=== PATIENT | male | born 1935 | race Caucasian/White ===

== ENCOUNTER → 2017-11-28 | Day surgery (SDC) | payer OTHER ==
[~2017-11-28] VITALS: Ht 172.7 cm; Wt 90.9 kg
[~2017-11-28] MED LIST: AMLO10TA3 PO; ATROPINE SULFATE 0.1 MG/ML 5ML SYR IV PRN; DEXAMETHASONE SOD INJ 4 MG/ML VIAL ONE; FENTANYL CITRATE INJ 50 MCG/1 ML 2 ML VIAL IV PRN; FENTANYL CITRATE INJ 50 MCG/1 ML 2 ML VIAL ONE; GLYCOPYRROLATE INJ 0.2 MG/ML VIAL ONE; INDOMETHACIN 50 MG SUPP ONE; INDOMETHACIN 50 MG SUPP PR ONE; LACTATED RINGER'S 1000ML 1,000 ML IV SCH; LIDOCAINE HCL 2% 2 ML VIAL (20MG/ML) ONE; LOSA1TAB38 PO; NEOSTIGMINE METHYLSULFATE 5 MG/5 ML SYR ONE; ONDANSETRON INJ 2 MG/ML 2 ML VIAL IV PRN; ONDANSETRON INJ 2 MG/ML 2 ML VIAL ONE; POLYSOL4 OP; PRLSR20 PO; PROPOFOL IV EMULSION 10 MG/ML 20 ML VIAL ONE; ROCURONIUM BROMIDE 10 MG/ML 5 ML VIAL ONE; TERA1CAP63 PO; TRAM-10 PO; TRAV0.00 OP
[2017-11-28 08:37] VITALS: BP 160/68; PULSE 76; TEMP 36.7; O2SAT 98; Ht 172.7 cm; Wt 90.9 kg
--- NOTE | 2017-11-28 10:42 | Endo History and Physical ---
History & Physical Date of Service: Nov 28, 2017. Chief Complaint: Abdominal pain Referring Physician: Dr. Rick History of Present Illness The patient presents for evaluation of abdominal pain after cholecystectomy. He underwent a cholecystectomy about 1 week ago and was found to have positive intraoperative cholangiogram. The patient was referred for ERCP for further evaluation. The patient is not jaundiced and his liver enzymes seem to be somewhat improved. Past Surgical History Hx Cardiac Surgery: No Hx Abdominal Surgery: No Hx Post-Op Nausea and Vomiting: No Hx Cancer Surgery: Yes (PROSTATE SEEDING PLACED,MOLE REMOVAL SHOULDER) Hx Thoracic Surgery: No Hx Orthopedic: Yes (ORIF R HAND) Hx Urinary Tract Surgery: No Social History Smoking Status: Never Smoker Hx Substance Use: No Hx Alcohol Use: Yes (RARELY) Allergies Coded Allergies: Doxycycline (Verified Allergy, Unknown, RASH HIVES, 11/28/17) Penicillins (Verified Allergy, Unknown, RASH HIVES, 11/28/17) Current Medications Reported Home Medications Medications Dose Route/Sig Max Daily Dose Days Date Category Travatan Z (Travoprost) 0.004 % Nicholas 1 Drops OP HS 11/27/17 Reported Systane (Polyethylene Glycol-Propylene) 1 Elizabeth Elizabeth 1 Drops OP PRN 11/27/17 Reported Ultram (Tramadol HCl) 50 Mg Tab 50 Mg PO Q8H PRN 11/27/17 Reported Prilosec (Omeprazole) 20 Mg Capcr 20 Mg PO PRN 11/27/17 Reported Hytrin (Terazosin HCl) 10 Mg Cap 10 Mg PO HS 11/27/17 Reported Norvasc (Amlodipine Besylate) 10 Mg Tab 10 Mg PO QAM 11/27/17 Reported Cozaar (Losartan Potassium) 100 Mg Tab 100 Mg PO QAM 11/27/17 Reported Vital Signs Weight (Kilograms): 90.91 Height (Feet): 5 Height (Inches): 8 Date Time Temp Pulse Resp B/P (MAP) Pulse Ox O2 Delivery O2 Flow Rate FiO2 11/28/17 08:37 36.7 76 18 160/68 (98) 98 Room Air Physical Exam General Appearance: no apparent distress Respiratory/Chest: Auscultation: breath sounds normal Cardiovascular: Heart Auscultation: II/ WES Abdomen: Inspection & Palpation: RUQ tenderness Assessment and Plan Patient presents for valuation of a suspected positive intraoperative cholangiogram. Has been over a week since the IOC was done and his labs are somewhat improved we will plan to do endoscopic ultrasound as the first part of the evaluation. If the EUS does show a gallstone we will then proceed with ERCP. I discussed the risks of the procedures to include bleeding, infection, perforation, aspiration, failed biliary cannulation, and pancreatitis.
--- NOTE | 2017-11-28 11:23 | GI REPORT ---
Patient Name: Stephon Roche Procedure Date: 11/28/2017 11:15 AM Date of : 1935 Admit Type: Outpatient Age: 81 Gender: Male Attending MD: Eric Austin DO Procedure: Upper GI endoscopy Providers: Eric Austin DO Referring MD: David Freeman Md Indications: Epigastric abdominal pain Medicines: General Anesthesia Complications: No immediate complications. Estimated blood loss: Minimal. Estimated Blood Loss: Estimated blood loss was minimal. Procedure: Pre-Anesthesia Assessment: - Prior to the procedure, a History and Physical was performed, and patient medications, allergies and sensitivities were reviewed. The patient's tolerance of previous anesthesia was reviewed. - The risks and benefits of the procedure and the sedation options and risks were discussed with the patient. All questions were answered and informed consent was obtained. - Patient identification and proposed procedure were verified prior to the procedure by the physician, the nurse and the forest technician. The procedure was verified in the procedure room. - Pre-procedure physical examination revealed no contraindications to sedation. - ASA Grade Assessment: III - A patient with severe systemic disease. - After reviewing the risks and benefits, the patient was deemed in satisfactory condition to undergo the procedure. - The anesthesia plan was to use general anesthesia. - Immediately prior to administration of medications, the patient was re-assessed for adequacy to receive sedatives. - The heart rate, respiratory rate, oxygen saturations, blood pressure, adequacy of pulmonary ventilation, and response to care were monitored throughout the procedure. - The physical status of the patient was re-assessed after the procedure. After obtaining informed consent, the endoscope was passed under direct vision. Throughout the procedure, the patient's blood pressure, pulse, and oxygen saturations were monitored continuously. The scope was introduced through the mouth, and advanced to the third part of duodenum. The upper GI endoscopy was accomplished without difficulty. The patient tolerated the procedure well. Findings: The examined esophagus was normal. The Z-line was regular and was found 39 cm from the incisors. Diffuse mild inflammation characterized by erythema and granularity was found in the entire examined stomach. Biopsies were taken with a cold forceps for histology. Estimated blood loss was minimal. Multiple 4 to 10 mm semi-sessile polyps with no bleeding and no stigmata of recent bleeding were found in the gastric fundus and in the gastric body. Biopsies were taken with a cold forceps for histology. Estimated blood loss was minimal. The examined duodenum was normal. Impression: - Normal esophagus. - Z-line regular, 39 cm from the incisors. - Gastritis. Biopsied. - Multiple gastric polyps. Biopsied. - Normal examined duodenum. Recommendation: - Perform an upper endoscopic ultrasound (UEUS) today. - Await pathology results. - Repeat the upper endoscopy for surveillance based on pathology results. Eric Austin D.O. Eric Austin, 11/28/2017 11:23:20 AM This report has been signed electronically. Note Initiated On: 11/28/2017 11:15 AM Number of Addenda: 0 I attest to the content of the Intraoperative Record and orders documented therein, exceptions below {[id number]}
--- NOTE | 2017-11-28 11:34 | GI REPORT ---
Patient Name: Stephon Roche Procedure Date: 11/28/2017 11:23 AM Date of : 1935 Admit Type: Outpatient Age: 81 Gender: Male Attending MD: Eric Austin DO Procedure: Upper EUS Providers: Eric Austin DO Referring MD: David Freeman Md Indications: Abnormal lab work, Suspected choledocholithiasis Medicines: General Anesthesia Complications: No immediate complications. Estimated blood loss: Minimal. Estimated Blood Loss: Estimated blood loss was minimal. Procedure: Pre-Anesthesia Assessment: - Prior to the procedure, a History and Physical was performed, and patient medications, allergies and sensitivities were reviewed. The patient's tolerance of previous anesthesia was reviewed. - The risks and benefits of the procedure and the sedation options and risks were discussed with the patient. All questions were answered and informed consent was obtained. - Patient identification and proposed procedure were verified prior to the procedure by the physician, the nurse and the tour escort. The procedure was verified in the procedure room. - Pre-procedure physical examination revealed no contraindications to sedation. - ASA Grade Assessment: III - A patient with severe systemic disease. - After reviewing the risks and benefits, the patient was deemed in satisfactory condition to undergo the procedure. - The anesthesia plan was to use general anesthesia. - Immediately prior to administration of medications, the patient was re-assessed for adequacy to receive sedatives. - The heart rate, respiratory rate, oxygen saturations, blood pressure, adequacy of pulmonary ventilation, and response to care were monitored throughout the procedure. - The physical status of the patient was re-assessed after the procedure. After obtaining informed consent, the endoscope was passed under direct vision. Throughout the procedure, the patient's blood pressure, pulse, and oxygen saturations were monitored continuously. The Endosonoscope was introduced through the mouth, and advanced to the second part of duodenum. The upper EUS was accomplished without difficulty. The patient tolerated the procedure well. Findings: Endosonographic Finding : There was no sign of significant endosonographic abnormality in the ampulla. No masses were identified. Evidence of a previous cholecystectomy was identified endosonographically. There was dilation in the common bile duct which measured up to 7 mm. One stone was visualized endosonographically in the common bile duct. It was hyperechoic and characterized by shadowing. There was abnormal echogenicity in the left lobe of the liver. This area was hyperechoic. There was no sign of significant endosonographic abnormality in the entire pancreas. The pancreas was well visualized, no masses, no cysts, the pancreatic duct was thin in caliber. No lymph nodes were seen during endosonographic examination in the perigastric region, in the peripancreatic region and in the sabrina hepatis region. Impression: - There was no sign of significant pathology in the ampulla. - Evidence of a cholecystectomy. - There was dilation in the common bile duct which measured up to 7 mm. - One stone was visualized endosonographically in the common bile duct. - There was abnormal echogenicity in the left lobe of the liver. This was hyperechoic. Tissue has not been obtained. However, the endosonographic appearance is suggestive of fatty infiltration. - There was no sign of significant pathology in the entire pancreas. - No specimens collected. Recommendation: - Perform an ERCP today. Eric Austin D.O. Eric Austin, 11/28/2017 11:34:16 AM This report has been signed electronically. Note Initiated On: 11/28/2017 11:23 AM Number of Addenda: 0 I attest to the content of the Intraoperative Record and orders documented therein, exceptions below {[id number]}
--- NOTE | 2017-11-28 12:02 | [facility] Post Operative Brief Note ---
Immediate Operative Summary Operative Date Nov 28, 2017. Pre-Operative Diagnosis Suspected positive intraoperative cholangiogram; Epigastric abdominal pain Post-Operative Diagnosis Choledocholithiasis Mild gastritis Gastric polyps Procedure(s) Performed Endoscopic Retrograde Cholangiopancreatogram; Upper Endoscopic Ultrasonography, Upper endoscopy Surgeon Dr. Nikolas Austin Hop Separator Surgeon(s) none Estimated Blood Loss 0 ml Findings Consistent with Post-Op Diagnosis Specimens 1) gastric biopsies 2) Gastric polyp biopsies Drains None Anesthesia Type General Complication(s) none Disposition Accompanied Pt To Recover: no Disposition: Recovery Room / PACU
--- NOTE | 2017-11-28 12:08 | GI REPORT ---
Patient Name: Stephon Roche Procedure Date: 11/28/2017 11:34 AM Date of : 1935 Admit Type: Outpatient Age: 81 Gender: Male Attending MD: Eric Austin DO Procedure: ERCP Providers: Eric Austin DO Referring MD: David Freeman Md Indications: Abdominal pain of suspected biliary origin, Filling defect on intraoperative cholangiogram, Abnormal endoscopic ultrasound of the biliary system Medicines: General Anesthesia, Indocin 100 mg FL Complications: No immediate complications. Estimated blood loss: Minimal. Estimated Blood Loss: Estimated blood loss was minimal. Procedure: Pre-Anesthesia Assessment: - Prior to the procedure, a History and Physical was performed, and patient medications, allergies and sensitivities were reviewed. The patient's tolerance of previous anesthesia was reviewed. - The risks and benefits of the procedure and the sedation options and risks were discussed with the patient. All questions were answered and informed consent was obtained. - Patient identification and proposed procedure were verified prior to the procedure by the physician, the nurse and the clinical asst. The procedure was verified in the procedure room. - Pre-procedure physical examination revealed no contraindications to sedation. - ASA Grade Assessment: III - A patient with severe systemic disease. - After reviewing the risks and benefits, the patient was deemed in satisfactory condition to undergo the procedure. - The anesthesia plan was to use general anesthesia. - Immediately prior to administration of medications, the patient was re-assessed for adequacy to receive sedatives. - The heart rate, respiratory rate, oxygen saturations, blood pressure, adequacy of pulmonary ventilation, and response to care were monitored throughout the procedure. - The physical status of the patient was re-assessed after the procedure. After obtaining informed consent, the scope was passed under direct vision. Throughout the procedure, the patient's blood pressure, pulse, and oxygen saturations were monitored continuously. The Scope was introduced through the mouth, and advanced to the duodenum and used to inject contrast into the bile duct and ventral pancreatic duct. The ERCP was accomplished without difficulty. The patient tolerated the procedure well. Findings: A vehicle glass technician film of the abdomen was obtained. Surgical clips, consistent with previous cholecystectomy, were seen in the area of the right upper quadrant of the abdomen. Surgical clips, consistent with previous cholecystectomy, were seen in the area of the right upper quadrant of the abdomen. The esophagus was successfully intubated under direct vision without detailed examination of the pharynx, larynx, and associated structures, and upper GI tract. The upper GI tract was grossly normal. 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 The major papilla was congested. The ventral pancreatic duct was inadvertently cannulated with the short-nosed traction sphincterotome and 0.035 in MET2 guidewire without any complications. This was left in place to aid in biliary cannulation with a double wire technique. The bile duct was deeply cannulated with the short-nosed traction sphincterotome and 0.035 in Acrobat 2 guidewire. Contrast was injected. I personally interpreted the bile duct images. Contrast extended to the entire biliary tree. A cholecystectomy had been performed. The main bile duct was moderately dilated, with a stone causing an obstruction. In additioin, there appeared be papillary stenosis. The largest diameter was 7 mm. Biliary sphincterotomy was made with a monofilament short-tip traction sphincterotome using ERBE electrocautery. The sphincterotomy oozed blood (stopped prior to the end of the procedure). To discover objects, the biliary tree was swept with an 8.5 to 15 mm balloon starting at the bifurcation several times. One pale stone and a small amount of sludge was removed. No stones remained on occlusion cholangiogram (inject below balloon). One 5 Fr by 7 cm pancreatic stent with a full external pigtail and no internal flaps was placed 7 cm into the ventral pancreatic duct. Clear fluid flowed through the stent(s). The stent was in good position. The endoscope was withdrawn from the patient. Impression: - Choledocholithiasis was found. Complete removal was accomplished by biliary sphincterotomy and balloon extraction. 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 - One prophylactic pancreatic stent was placed into the ventral pancreatic duct. Recommendation: - Discharge patient to home (ambulatory). - Clear liquid diet today. - Perform a flat plate abdominal x-ray in 4 weeks to ensure passage of the pancreatic stent.. - Observe patient's clinical course following today's ERCP with therapeutic intervention. - Check liver enzymes (AST, ALT, alkaline phosphatase, bilirubin) in 1 week. Eric Austin D.O. Eric Austin DO 11/28/2017 12:08:25 PM This report has been signed electronically. Note Initiated On: 11/28/2017 11:34 AM Number of Addenda: 0 I attest to the content of the Intraoperative Record and orders documented therein, exceptions below {[id number]}
--- NOTE | 2017-11-28 12:26 | Discharge Instructions ---
Endoscopy Patient Instructions Date / Procedure(s) Performed Nov 28, 2017. ERCP, EGD, Other (Endoscopic Ultrasound) Allergy Information Coded Allergies: Doxycycline (Verified Allergy, Unknown, RASH HIVES, 11/28/17) Penicillins (Verified Allergy, Unknown, RASH HIVES, 11/28/17) Discharge Date / Findings Nov 28, 2017. Mild dilation of the common bile duct Papillary stenosis One stone and some sludge in the common bile duct Mild gastritis Several gastric polyps Medication Instructions Reported Home Medications Medications Dose Route/Sig Max Daily Dose Days Date Category Travatan Z (Travoprost) 0.004 % Nicholas 1 Drops OP HS 11/27/17 Reported Systane (Polyethylene Glycol-Propylene) 1 Elizabeth Elizabeth 1 Drops OP PRN 11/27/17 Reported Ultram (Tramadol HCl) 50 Mg Tab 50 Mg PO Q8H PRN 11/27/17 Reported Prilosec (Omeprazole) 20 Mg Capcr 20 Mg PO PRN 11/27/17 Reported Hytrin (Terazosin HCl) 10 Mg Cap 10 Mg PO HS 11/27/17 Reported Norvasc (Amlodipine Besylate) 10 Mg Tab 10 Mg PO QAM 11/27/17 Reported Cozaar (Losartan Potassium) 100 Mg Tab 100 Mg PO QAM 11/27/17 Reported Provider Instructions Activity Restrictions - No exercising or heavy lifting for 24 hours. - Do not drink alcohol the day of the procedure. - Do not drive a car or operate machinery until the day after the procedure. - Do not make any important decisions or sign important papers in 24 hours after the procedure. Following Day: - Return to full activity which may include returning to work/school. Diet Clear liquid diet today Regular diet on 11/29/17 Treatment For Common After Affects For mild abdominal pain, bloating, or excessive gas: - Rest - Eat lightly - Lie on right side Follow-Up Information Normal x-ray in 1 month to ensure passage of the pancreatic stent Liver enzyme panel in 1 week Use of aspirin, Motrin and ibuprofen (NSAIDS) for 1 week Liquid diet today Follow-up with Dr. Austin if the symptoms return or persist. Anesthesia Information What You Should Know You have had a procedure that required some medicine to reduce anxiety and discomfort. This treatment is called moderate sedation. After receiving the treatment, you may be sleepy, but you will be able to breathe on your own. The effects of the treatment may last for several hours. Follow these instructions along with Activity/Diet recommendations noted above: * Do NOT do anything where dizziness or clumsiness would be dangerous. * Rest quietly at home today, then you can be up and about tomorrow. * Have a responsible person stay with you the rest of today. * You may have had an I.V. today. If so, you may take the dressing off later today. Recommendations Call your doctor if: * Trouble breathing * Continuous vomiting for more than 24 hours * Temperature above 101 degrees * Severe abdominal pain or bloating * Pain not relieved by pain medicine ordered * There is increased drainage or redness from any incision * A large amount of rectal bleeding greater than 2-3 tablespoons. (If you had a polyp/s removed or have hemorrhoids, a small amount of blood - from the rectum is to be expected.) * You have any unanswered questions or concerns. IN THE EVENT OF A SERIOUS EMERGENCY, GO TO THE NEAREST EMERGENCY ROOM Your discharge instructions were prepared by provider Eric Austin. Patient Instructions Signature Page Stephon Roche Patient (or Guardian) Signature/Date: I have read and understand the instructions given to me by my caregivers. Caregiver/RN/Doctor Signature/Date: The above-named patient and/or guardian has received patient instructions on this date. + Original Patient Signature Page (only) stays with chart. Please make copy for patient.
--- NOTE | 2017-11-28 12:28 | DIAGNOSTIC IMAGING REPORT ---
ERCP BILIARY DUCTAL CLINICAL HISTORY: ERCP IN OR 11/28/17 COMPARISON STUDY: None. FLUOROSCOPY TIME: 38 seconds. FINDINGS: 9 fluoroscopic images from ERCP were submitted for interpretation. These images demonstrate cannulation of the common bile duct with apparent balloon sweep through the common bile duct. Contrast is noted within the duodenum. No biliary ductal dilatation is identified. Intrahepatic bile ducts are partially opacified. IMPRESSION: Fluoroscopic images obtained during ERCP. Electronically signed by: Vel De La Rosa M.D. 11/28/2017 12:27 PM Dictated Date/Time: 11/28/2017 12:26 PM
--- NOTE | 2017-11-28 12:36 | Anesthesiology Progress Note ---
Anesthesia Post Op Note Date & Time Nov 28, 2017 at 12:35 Vital Signs Pain Intensity: 0 Vital Signs Past 12 Hours Date Time Temp Pulse Resp B/P (MAP) Pulse Ox O2 Delivery O2 Flow Rate FiO2 11/28/17 12:25 57 13 152/73 98 Room Air 11/28/17 12:15 56 16 160/66 96 Oxymask 10 11/28/17 12:06 36.0 54 22 134/66 99 Oxymask 10 11/28/17 08:37 36.7 76 18 160/68 (98) 98 Room Air Notes Mental Status: alert / awake / arousable, participated in evaluation Pt Amnestic to Procedure: Yes Nausea / Vomiting: adequately controlled Pain: adequately controlled Airway Patency, RR, SpO2: stable & adequate BP & HR: stable & adequate Hydration State: stable & adequate Anesthetic Complications: no major complications apparent
[2017-11-28 12:50] VITALS: BP 179/79; PULSE 64; TEMP 36.7; O2SAT 96
--- NOTE | 2017-11-28 12:51 | Progress Note ---
Progress Note Date of Service Nov 28, 2017. Progress Note Patient seen in recovery area, patients also seen in family waiting area. Recs: Liquid diet today No nSAIDS for 1 week KUB in 4 weeks Liver enzymes in 1 weeks.
[2017-11-28 13:20] VITALS: BP 168/78; PULSE 64; TEMP 36.9; O2SAT 97
== END | disposition home or self-care (01) ==
LOC: C.ACU 08:09
PROVIDERS: ATTEND Internal Medicine Gastroenterology
DX: R10.13 Epigastric pain (principal); K31.7 Polyp of stomach and duodenum; K29.70 Gastritis, unspecified, without bleeding; K80.50 Calculus of bile duct without cholangitis or cholecystitis without obstruction; I10 Essential (primary) hypertension; E78.5 Hyperlipidemia, unspecified; K21.9 Gastro-esophageal reflux disease without esophagitis; E11.9 Type 2 diabetes mellitus without complications; N18.3 Chronic kidney disease, stage 3 (moderate); F17.220 Nicotine dependence, chewing tobacco, uncomplicated; Z88.1 Allergy status to other antibiotic agents; Z88.0 Allergy status to penicillin; Z88.8 Allergy status to other drugs, medicaments and biological substances